=== PATIENT | female | born 1950 | race Caucasian/White ===

== ENCOUNTER → 2024-08-09 10:27 | Outpatient (REF) | payer MEDICARE, SELFPAY ==
[2024-08-09 11:54] LABS: Blood Urea Nitrogen 23 mg/dl (7-17); Calcium 10.2 mg/dl (8.4-10.2); Carbon Dioxide 27 mmol/L (22-30); Chloride 100 mmol/L (98-107); Glucose 98 mg/dl (70-99); Potassium 4.8 mmol/L (3.5-5.1); Sodium 140 mmol/L (135-145); eGFR > 60.00
== END ==
LOC: REG 10:27
PROVIDERS: ATTENDING PHYSICIAN Family Medicine Geriatric Medicine; FAMILY PHYSICIAN Physician Assistant Medical
DX: C21.0 Malignant neoplasm of anus, unspecified (principal)
CPT/HCPCS: 36415; 80048

== ENCOUNTER → 2024-08-15 08:10 | Outpatient (REF) | payer MEDICARE, SELFPAY | LOC: RAD 08:10 | PROVIDERS: ATTENDING PHYSICIAN Family Medicine Geriatric Medicine; FAMILY PHYSICIAN Physician Assistant Medical | DX: C21.0 Malignant neoplasm of anus, unspecified (principal) | CPT/HCPCS: 71260; 74177; Q9967 ==

== ENCOUNTER → 2024-10-05 18:40 | Outpatient (REF) | payer MEDICARE, SELFPAY | LOC: MRI 3T 18:40 | PROVIDERS: ATTENDING PHYSICIAN Family Medicine Geriatric Medicine; FAMILY PHYSICIAN Physician Assistant Medical | DX: K76.9 Liver disease, unspecified (principal) | CPT/HCPCS: 74183; A9575 ==

== ENCOUNTER → 2024-11-29 13:43 | Outpatient (REF) | payer MEDICARE, SELFPAY | LOC: WDC 13:43 | PROVIDERS: ATTENDING PHYSICIAN Physician Assistant Medical | DX: J45.20 Mild intermittent asthma, uncomplicated (principal); I10 Essential (primary) hypertension; M81.0 Age-related osteoporosis without current pathological fracture; Z12.31 Encounter for screening mammogram for malignant neoplasm of breast | CPT/HCPCS: 77063; 77067; 77080 ==

== ENCOUNTER 2025-08-14 23:19 | Emergency (ER) | payer MEDICARE, SELFPAY ==
[2025-08-14 23:21] VITALS: BP 158/88
[2025-08-14 23:44] VITALS: BMI 28.8
[2025-08-14] MEDS: PERCOCET 5/325 1 TABLET PO (23:48)
--- NOTE | 2025-08-15 00:23 | ED.GENMED ---
History of Present Illness
General
Chief Complaint: Musculo-Skeletal Complaint
Source: patient
Exam Limitations: none
Time Seen by Provider: 08/14/25 23:29
History of Present Illness
History of Present Illness:
See MDM
Past History
Past History
ED Past Medical History: Asthma
ED Past Surgical History: Orthopedic
Social History
Tobacco: Former smoker
Alcohol: None
Drug: None
Personal:
Living: with family
Phy Exam
Physical Exam
Physical Exam:
See MDM
Course
Orders/Labs/Results
Orders:
Orders
08/14/25 23:38
Oxycodone/Acetaminophen [Percocet 5/325] 1 tablet PO NOW STA
08/15/25 00:05
CR Hip - RT w/wo Pel 2-3 Vw* Urgent
Reason For Exam: R hip pain
Include a pelvis x-ray?: Yes
08/15/25 00:23
Oxycodone/Acetaminophen [Percocet 5/325] 1 tablet PO NOW STA
Vital Signs
Initial and Last Documented VS:
Initial Vital Signs
Temp Pulse Resp BP Pulse Ox
97.8 F 70 22 158/88 98
08/14/25 23:21 08/14/25 23:21 08/14/25 23:21 08/14/25 23:21 08/14/25 23:21
Last Documented Vital Signs
Temp Pulse Resp BP Pulse Ox
97.8 F 70 22 158/88 98
08/14/25 23:21 08/14/25 23:21 08/14/25 23:21 08/14/25 23:21 08/15/25 00:27
MDM/Problems Addressed
Differential Diagnosis Includes:
Note:
CHIEF COMPLAINT(S)
Left hip pain.
HISTORY OF PRESENT ILLNESS
The patient is a 75-year-old female with a history of colorectal cancer who presents with right hip pain. Onset of symptoms occurred after she was trying to move a heavy chair. The pain began several days ago and has persisted without significant
improvement. The patient reports that initially, the pain was not worsening and somewhat improved while resting. However, after activities such as showering, dressing, and having breakfast, the pain aggravated. The patient saw her oncologist, who
advised trying ibuprofen after acetaminophen did not alleviate the symptoms. The patient found ibuprofen slightly more effective but the pain persists. She describes the pain as located in the left hip area without associated rashes.
The patients activity is limited by the pain. Clinical examination reveals localized tenderness upon palpation of the right hip along the iliac crest. No rash was noted during the examination. The potential muscular involvement was discussed,
including irritation of the iliotibial band. The patient is oriented and alert with no evidence of acute distress other than pain.
PAST MEDICAL AND SURGICAL HISTORY
History of rectal cancer.
ALLERGIES
Allergic to dilaudid and morphine.
PHYSICAL EXAM
General: Alert, no acute distress.
Skin: Warm, dry.
Head: Normocephalic, atraumatic
Neck: Appears supple, trachea midline.
Eyes, Ears, Nose, Mouth, and Throat: Moist mucous membranes
Cardiovascular: No signs of cyanosis
Respiratory: Respirations are non-labored.
Abdomen: Non-distended
Musculoskeletal: No deformities. Negative straight leg raise. Mild tenderness to palpation of origin of right IT band
Neurological: No focal neurological deficit observed.
Psychiatric: Cooperative, appropriate mood and affect.
PLAN
1. Order an X-ray of the left hip to evaluate for any potential bone abnormalities such as arthritic changes or fractures.
2. Prescribe appropriate pain medication considering the patient�s allergies and past tolerance.
3. Discuss options, such as physical therapy or orthopedic consultation, if symptoms do not improve.
4. Advise the patient to maintain a regimen of stool softeners while on pain medication to prevent constipation.
DIFFERENTIAL DIAGNOSIS
The Differential Diagnosis includes, in no particular order and is not limited to:
1. Muscle strain or tear
2. Arthritis
3. Iliotibial band syndrome
4. Bursitis
5. Tendonitis
6. Fracture
7. Osteoarthritis
8. Ligament sprain
9. Sciatica
10. Referred pain from lumbar spine conditions
SUMMARY OF ENCOUNTER
The patient presented with right hip pain, suspected to be related to a strain after heavy lifting. An X-ray of the right hip revealed expected arthritic changes. Pain management was discussed, and a prescription for appropriate pain medication was
written. The patient reported feeling better after receiving pain medication.
DISPOSITION
The patient was discharged.
ASSESSMENT
Right hip pain, likely due to musculoskeletal strain with underlying arthritic changes observed on X-ray.
PLAN
1. Prescribe pain medication for management of symptoms.
2. Follow up with primary care provider (PCP) to discuss potential physical therapy.
3. Discussion about the necessity of an MRI for further evaluation if symptoms persist.
PATIENT EDUCATION AND COUNSELING
The patient was advised to follow up with her PCP to evaluate the necessity of physical therapy and discuss further management options, including the potential need for an MRI.
FOLLOW-UP INSTRUCTIONS
Please call the office immediately to schedule a follow-up visit with your primary care provider.
MEDICATION RECONCILIATION
Prescription medication was prescribed for pain management, details of which should be finalized according to the patients allergy and medical history.
MEDICAL DECISION MAKING
-Complexity of Data Reviewed: Chronic conditions affecting care [rectal cancer history] and potential arthritic changes.
-DDx includes muscle strain or tear, arthritis, iliotibial band syndrome, bursitis, tendonitis, fracture, osteoarthritis, ligament sprain, sciatica, referred pain from lumbar spine conditions.
-Data:
Category 1
Clinical information was interpreted from an X-ray revealing arthritic changes.
-Risk:
Prescription medication was prescribed and managed, taking into consideration the patient�s history of allergies to specific analgesics.
DIAGNOSIS
1. Muscle strain, Right hip
*Pulse Oximetry
SaO2: 98
Oxygen Mode of Delivery: Room air
Patient hypoxic: no
*Critical Care Note
Total Time (30-74mins, 75-104mins- exclusive of procedures): Not Applicable
ED Attending Note
-
Portions of this chart may have been created with voice recognition software.� Occasional wrong word or��sound alike� substitutions may have occurred due to the inherent limitations of voice recognition software.
Discharge Plan
Departure
Patient Disposition: Home (Routine Discharge)
Date of Disposition: 08/15/25
Time of Disposition: 00:29
Patient with high blood pressure during this ER visit?: Yes
Discharge Problem:
Strain of hip
Instructions: Hip pain - ED (DC)
Prescriptions:
New
oxycodone 5 mg tablet
5 mg PO Q8H PRN (Reason: Pain) Qty: 10 0RF
No Action
albuterol sulfate 1 PUFF HFA aerosol inhaler
1 puff inhalation R Q4HPRN PRN (Reason: sob) Qty: 1 0RF
multivitamin [Aic-Yimmfx-Fobds] 1 EACH tablet
1 ea PO DAILY
atorvastatin 20 MG tablet
20 mg PO DAILY
lisinopril 10 MG tablet
10 mg PO DAILY
acetaminophen [Tylenol] 325 MG capsule
650 mg PO PRN PRN (Reason: pain)
Referrals:
Mya Arnold PA-C [Family Provider, Family Practice]
Activity Restrictions/Additional Instructions:
Please return for any worsening symptoms.
You may return at any time if you have further concerns.
Please follow up with your doctor at the first available appointment, preferably this week. Please discuss physical therapy and whether or not an MRI is warranted.
You were given a prescription for narcotics. If you require this pain medicine, please take a daily [id number] stool softener to avoid constipation.
Thank you for choosing [facility].
Interventions
Interventions:
*Risk Screen - Suicide Last Done: 08/14/25 23:21
*General Assessment Last Done: 08/14/25 23:44
*Neglect/Abuse Screening Last Done: 08/14/25 23:21
*ED- Fall Risk Assessment Last Done: 08/14/25 23:44
*ED COVID-19 Vaccine History Last Done: 08/14/25 23:44
*ED Influenza Vaccine History Last Done: 08/14/25 23:44
ED-Musculoskeletal Assessment Last Done: 08/14/25 23:47
Discharge Date and Time
Print Language: SYRIAC
[2025-08-15] MEDS: PERCOCET 5/325 1 TABLET PO (00:40)
== END 2025-08-15 01:01 | disposition home or self-care (01) ==
LOC: EMR 23:19
PROVIDERS: EMERGENCY PHYSICIAN Student in an Organized Health Care Education/Training Program; FAMILY PHYSICIAN Physician Assistant Medical
DX: S76.011A Strain of muscle, fascia and tendon of right hip, initial encounter (principal); X50.9XXA Other and unspecified overexertion or strenuous movements or postures, initial encounter; J45.909 Unspecified asthma, uncomplicated; Z85.048 Personal history of other malignant neoplasm of rectum, rectosigmoid junction, and anus; Z87.891 Personal history of nicotine dependence; Z88.5 Allergy status to narcotic agent
CPT/HCPCS: 99283; 73502